=== PATIENT | female | born 1970 | race Caucasian/White ===

== ENCOUNTER 2020-02-16 11:03 | Outpatient (CLI) | payer BC ==
--- NOTE | 2020-02-16 11:48 | RAD ---
XR Cerv Sp Ap Lat STANDARD: 02/16/2020 11:30 AM CLINICAL HISTORY: Wellness exam with chronic neck pain COMPARISON: None Bones: No acute fracture demonstrated. Intervertebral disc spaces and facet complexes: Preserved. Spinal alignment: Within normal limits. Prevertebral soft tissues: Normal. Lateral masses: Symmetric. Lung apices: Clear. Additional findings: None. IMPRESSION: Normal cervical spine.
--- NOTE | 2020-02-20 16:15 | MMO ---
Bilateral MAMMO Bilat Screen [facility]. CLINICAL HISTORY: Patient is 49 years old and is seen for screening. The patient has no family history of breast cancer. The patient has no personal history of cancer. VIEWS: The views performed were: bilateral craniocaudal with tomosynthesis and bilateral mediolateral oblique with tomosynthesis. FILMS COMPARED: The present examination has been compared to prior imaging studies performed at and at [facility] on 07/17/2013. This study has been interpreted with the assistance of computer-aided detection. MAMMOGRAM FINDINGS: The breasts are extremely dense, which may lower the sensitivity of mammography. There are benign appearing calcifications seen in both breasts. There are no suspicious masses, suspicious calcifications, or new areas of architectural distortion. IMPRESSION: THERE IS NO MAMMOGRAPHIC EVIDENCE OF MALIGNANCY. A ROUTINE FOLLOW-UP MAMMOGRAM IN 1 YEAR IS RECOMMENDED. THE RESULTS OF THIS EXAM WERE SENT TO THE PATIENT. ACR BI-RADS Category 2 - Benign finding MAMMOGRAPHY NOTE: 1. A negative mammogram report should not delay a biopsy if a dominant of clinically suspicious mass is present. 2. Approximately 10% to 15% of breast cancers are not detected by mammography. 3. Adenosis and dense breasts may obscure an underlying neoplasm. Reported by: JULIUS ALVARES MD Electonically Signed: [id number]
== END 2020-02-16 11:04 | disposition home or self-care (01) ==
LOC: BICMAMMO 11:03
PROVIDERS: ATTEND Internal Medicine
DX: Z12.31 Encounter for screening mammogram for malignant neoplasm of breast (principal); M54.2 Cervicalgia; G89.29 Other chronic pain
CPT/HCPCS: 72040; 77063; 77067